=== PATIENT | female | born 1985 | race Caucasian/White ===

== ENCOUNTER 2020-03-17 11:12 | Outpatient (NON) | payer BC, SELFPAY ==
[2020-03-17 22:34] LABS: SARS-CoV-2 RNA PCR Negative
== END 2020-03-17 11:13 ==
PROVIDERS: PCP Family Medicine; Visit Provider Physician Assistant
DX: R53.83 Other fatigue (principal); Z20.822 Contact with and (suspected) exposure to COVID-19
CPT/HCPCS: C9803; U0003; U0005

== ENCOUNTER 2020-03-24 15:42 | Outpatient (CLI) | payer BC, SELFPAY ==
--- NOTE | 2020-03-24 16:10 | ECG_ITS ---
Measurements Intervals [place] Rate: 109 P: 50 CA: 129 QRS: 41 QRSD: 96 T: 46 QT: 347 QTc: 467 Interpretive Statements SINUS TACHYCARDIA POSSIBLE LEFT ATRIAL ENLARGEMENT INCOMPLETE RIGHT BUNDLE BRANCH BLOCK BORDERLINE ST-T WAVE ABNORMALITY- INF/LAT LEADS BASELINE ARTIFACT- I, III, AVL, AVF ABNORMAL ECG Electronically Signed On 03-24-2020 17:14:50 POLYSOMNOGRAPHIC TECH by Santana Carias D.O.
[2020-03-24 16:30] LABS: Hematocrit 36.5 % (37.0-47.0); Hemoglobin 11.8 g/dL (12.0-15.0); Mean Corpuscular HGB Conc 32.3 g/dl (32-36); Mean Corpuscular Hemoglobin 30.4 pg (26-34); Mean Corpuscular Volume 94.1 fl (80-100); Mean Platelet Volume 10.1 fl (7.4-10.4); Platelet Count Result 260 k/mm3 (150-375); Red Blood Count 3.88 M/mm3 (4.2-5.4); Red Cell Distribution Width 12.8 % (11.5-14.5); White Blood Count 7.5 K/mm3 (4.5-10.0)
[2020-03-24 16:44] LABS: Alanine Aminotransferase 10 U/L (4-35); Albumin Level 4.4 g/dL (3.5-5.1); Alkaline Phosphatase 55 U/L (38-126); Anion Gap 7 mmol/L (8-16); Aspartate Amino Transferase 21 U/L (14-36); Bilirubin,Total 0.4 mg/dL (0.2-1.3); Blood Urea Nitrogen 12 mg/dL (7-17); Carbon Dioxide 30 mmol/L (22-30); Chloride 99 mmol/L (98-107); Estimated Glomerular Filt Rate > 60; Glucose 87 mg/dL (65-105); Potassium 3.9 mmol/L (3.4-5.0); Sodium 136 mmol/L (137-145)
[2020-03-24 17:23] LABS: Free T4 Free Thyroxine 1.08 ng/mL (0.78-2.19)
== END 2020-03-24 15:43 | disposition home or self-care (01) ==
LOC: ANHLAB 15:44
PROVIDERS: PCP Family Medicine; Visit Provider Physician Assistant
DX: R00.2 Palpitations (principal); R94.31 Abnormal electrocardiogram [ECG] [EKG]
CPT/HCPCS: 36415; 80053; 84439; 84443; 85027; 93005

== ENCOUNTER 2020-03-31 16:15 | Outpatient (CLI) | payer BC, SELFPAY ==
[2020-03-31 17:09] LABS: Iron 97 ug/dL (37-170)
[2020-03-31 17:18] LABS: Percent Iron Saturation 27 % (20-50)
== END 2020-03-31 16:16 | disposition home or self-care (01) ==
LOC: ANHLAB 16:18
PROVIDERS: PCP Family Medicine; Visit Provider Family Medicine
DX: D64.9 Anemia, unspecified (principal)
CPT/HCPCS: 36415; 83540; 83550

== ENCOUNTER 2021-12-07 14:46 | Emergency (ER) | payer BC, OTHER, SELFPAY ==
[2021-12-07] VITALS (12 sets, daily range): BP systolic 101–125; BP diastolic 76–96; PULSE 86–121; RESP 14–21; TEMP 36.8; O2SAT 99–100
--- NOTE | ~2021-12-07 | CT_ITS ---
EXAMINATION: CT brain wo con DATE: 12/07/2021 16:56 INDICATION: Lightheadedness and frequent dizziness TECHNIQUE: Computed tomography (CT) of the head was performed without intravenous contrast. Sagittal and coronal reconstructions were performed. The mA was adjusted according to patient size. Iterative reconstruction technique was employed. The dose-length product was 983.67 mGy-cm. COMPARISON: head CT dated 09/06/16 FINDINGS: No acute intracranial hemorrhage, acute infarction or abnormal extra axial fluid collection. Ventricl es are normal and symmetric. No mass/mass effect. The orbits, paranasal sinuses and mastoid air cells are normal. IMPRESSION: 1. Normal head CT. Reviewed, dictated and finalized at location B. IMPRESSION: 1. Normal head CT.
--- NOTE | 2021-12-07 15:00 | ECG_ITS ---
Measurements Intervals [place] Rate: 103 P: 63 LA: 122 QRS: 36 QRSD: 81 T: 69 QT: 332 QTc: 435 Interpretive Statements SINUS TACHYCARDIA INCOMPLETE RIGHT BUNDLE BRANCH BLOCK ST-T WAVE ABNORMALITY IN THE INFEROLATERAL LEADS ABNORMAL RHYTHM ECG COMPARED TO ECG 03/24/2020 16:23:16 NO SIGNIFICANT CHANGES Electronically Signed On 12-08-2021 14:39:15 CDT by Jayme Agrawal M.D.
[2021-12-07 15:26] LABS: Basophils Percent Auto 0.6 % (0.2-1.2); Eosinophils Absolute Auto 0.1 K/mm3 (0-0.3); Eosinophils Percent Auto 0.8 % (0-4.4); Hematocrit 37.3 % (37.0-47.0); Hemoglobin 12.2 g/dL (12.0-15.0); Immature Granulocyte Absolute 0.02 K/mm3 (0.00-0.031); Immature Granulocyte Percent A 0.3 % (0-0.5); Lymphocytes Absolute Auto 1.27 K/mm3 (0.9-3.2); Lymphocytes Percent Auto 17.6 % (18.3-44.2); Mean Corpuscular HGB Conc 32.7 g/dl (32-36); Mean Corpuscular Hemoglobin 29.9 pg (26-34); Mean Corpuscular Volume 91.4 fl (80-100); Mean Platelet Volume 9.8 fl (7.4-10.4); Monocytes Absolute Auto 0.4 K/mm3 (0.1-0.6); Monocytes Percent Auto 5.6 % (2.6-8.5); Neutrophils Absolute Auto 5.4 K/mm3 (1.3-6.7); Neutrophils Percent Auto 75.1 % (45.5-73.1); Platelet Count Result 273 k/mm3 (150-375); Red Blood Count 4.08 M/mm3 (4.2-5.4); Red Cell Distribution Width 12.6 % (11.5-14.5); White Blood Count 7.2 K/mm3 (4.5-10.0)
[2021-12-07 15:35] LABS: Alanine Aminotransferase 15 U/L (6-35); Albumin Level 4.6 g/dL (3.5-5.1); Alkaline Phosphatase 61 U/L (38-126); Anion Gap 8 mmol/L (8-16); Aspartate Amino Transferase 22 U/L (14-36); Bilirubin,Total 0.4 mg/dL (0.2-1.3); Blood Urea Nitrogen 9 mg/dL (7-17); Calcium 9.4 mg/dL (8.4-10.2); Carbon Dioxide 27 mmol/L (22-30); Chloride 104 mmol/L (98-107); Estimated CRCL calculation 88 ml/min; Estimated Glomerular Filt Rate > 60; Glucose 123 mg/dL (65-110); Potassium 3.7 mmol/L (3.4-5.0); Sodium 139 mmol/L (137-145)
--- NOTE | 2021-12-07 15:58 | ED.DIZZY ---
HPI - Dizziness General Chief Complaint: Dizziness <SHERRON Mathis Last Filed: 12/07/21 18:53> Stated Complaint: DIZZYNESS <SHERRON Mathis Last Filed: 12/07/21 18:53> Time Seen by Provider: 12/07/21 15:22 <SHERRON Mathis Last Filed: 12/07/21 18:53> Source: patient <SHERRON Mathis Last Filed: 12/07/21 18:53> Mode of arrival: ambulatory <SHERRON Mathis Last Filed: 12/07/21 18:53> Limitations: no limitations <SHERRON Mathis Last Filed: 12/07/21 18:53> History of Present Illness HPI Narrative: Patient is a 35 y/o female who presents to the ED with c/o lightheadedness. Patient reports she has had intermittent dizzy spells for the last several months, described as brief episodes of dizziness when moving head too quickly or abrupt position changes. Today, she reports she began to feel lightheaded while making lunch for her children. She laid down and felt like she was going to pass out. States it was also aggravated with movements. She called her mother who then brought her to the ED. Patient states she has a mild headache, but feels better currently. She denied any other symptoms, no chest pain, difficulty breathing, vision changes, syncope, weakness, confusion, nausea, vomiting, abdominal pain. <SHERRON Mathis Last Filed: 12/07/21 18:53> Related Data Allergies/Adverse Reactions: Allergies Allergy/AdvReac Type Severity Reaction Status Date / Time No Known Allergies Allergy Unknown Verified 12/07/21 14:59 <SHERRON Mathis Last Filed: 12/07/21 18:53> Review of Systems Review of Systems: CONSTITUTIONAL: Denies fever, chills, or sweats. EYES: Denies visual changes. ENT: Denies rhinorrhea, congestion, otalgia. CARDIOVASCULAR: Denies chest pain, palpitations. RESPIRATORY: Denies dyspnea. GASTROINTESTINAL: Denies abdominal pain, nausea, vomiting. NEUROLOGIC: Reports dizziness/lightheadedness, MARINO. Denies syncope, numbness, or weakness. <Rebecca Santiago PA-C - Last Filed: 12/07/21 18:53> All systems reviewed & are unremarkable except as noted in HPI and below <Rebecca Santiago PA-C - Last Filed: 12/07/21 18:53> PMFSH Past Medical History Medical History: Medical History (Updated 12/08/21 @ 00:01 by Juarez Toro) Anxiety Incomplete RBBB <Rebecca Santiago PA-C - Last Filed: 12/07/21 18:53> Surgical History Surgical History: Surgical History (Updated 12/07/21 @ 15:59 by Rebecca Santiago PA-C) No pertinent past surgical history <Rebecca Santiago PA-C - Last Filed: 12/07/21 18:53> Family History Family History: Family History Grandparent Family history of elevated blood lipids Carcinoma of colon, Onset Age: 60 Family history of malignant neoplasm of cervix Family history of coronary artery disease, Onset Age: 60 Diabetes mellitus Other Family history of malignant neoplasm of breast <Rebecca Santiago PA-C - Last Filed: 12/07/21 18:53> Social History Social History: Social History Smoking status: Never smoker Second hand tobacco smoke exposure: No Alcohol intake: current Alcohol use details: rare Substance use: never Substance use type: does not use Gender identity (if verbalized by the patient): Female <Rebecca Santiago PA-C - Last Filed: 12/07/21 18:53> Exam Narrative: GENERAL: Well appearing, well-nourished, non-toxic, in no acute distress. HEAD: Normocephalic, atraumatic. EYES: PERRL/EOMI, conjunctivae clear bilaterally. Minimal nystagmus with gaze to right side, fatiguable. No reproduction of dizziness with eye movement. NECK: Supple. No adenopathy, no masses. RESPIRATORY: Airway patent, respirations nonlabored. Clear to auscultation bilaterally, no rales, rho
[2021-12-07 16:42] LABS: Creatine Kinase 58 U/L (30-135)
[2021-12-07] MEDS: SODIUM CHLORIDE 0.9% IV 1,000 ML 999 ML IV CONT (16:47)
[2021-12-07] MEDS: MECLIZINE HCL 25 MG TABLET PO (16:48)
[2021-12-07 16:55] LABS: Add Urine Microscopic? YES; Appearance Urine Clear (Clear); Bacteria Urine Trace /hpf; Bilirubin Urine Negative (Negative); Blood Urine 1+ (Negative); Color Urine Colorless (Yellow); Glucose Urine UA Negative (Negative); Ketones Urine Negative (Negative); Leukocyte Esterase Ur Negative LEU/UL (Negative); Mucus Urine Rare /lpf; Nitrate Urine Negative (Negative); Protein Urine Negative (Negative); RBC Urine 0-2 /hpf (0-2); Urobilinogen Urine Negative mg/dL (<2.0); WBC Urine 0-3 /hpf
[2021-12-07 16:55] LABS: Troponin I < 0.012 ng/mL (0.000-0.034)
[2021-12-07 17:01] LABS: D Dimer 0.36 ug/mL (<0.48)
[2021-12-07 17:03] LABS: Specific Grav Ur 1.001 (1.001-1.035)
== END 2021-12-07 18:47 | disposition home or self-care (01) ==
PROVIDERS: Emergency Medicine; Physician Assistant; Emergency Provider Emergency Medicine; PCP Nurse Practitioner
DX: R42 Dizziness and giddiness (principal); R00.0 Tachycardia, unspecified; F41.9 Anxiety disorder, unspecified
CPT/HCPCS: 36415; 70450; 80053; 81001; 81025; 82550; 84484; 85025; 85380; 93005; 96360; 99284; A9270; J7030

== ENCOUNTER 2023-05-22 08:14 | Outpatient (CLI) | payer BC, SELFPAY ==
--- NOTE | ~2023-05-22 | US_ITS ---
EXAMINATION:US venous doppler LE RT INDICATION:Varicose veins TECHNIQUE: Multiple grayscale, color flow and Doppler images of the right lower extremity deep venous systems were obtained and reviewed. COMPARISON:No prior studies for comparison. FINDINGS: The common femoral, superficial femoral and popliteal veins demonstrate normal respiratory variation, augmentation and compressibility. Color flow is also seen within the posterior tibial, pe roneal, greater saphenous and profunda veins. IMPRESSION: 1: No lower extremity deep venous thrombosis. Reviewed, dictated and finalized at location B.
== END 2023-05-22 08:15 ==
PROVIDERS: PCP Nurse Practitioner; Visit Provider Nurse Practitioner
DX: I83.91 Asymptomatic varicose veins of right lower extremity (principal)
CPT/HCPCS: 93971